=== PATIENT | male | born 1990 | race Caucasian/White ===

== ENCOUNTER 2016-05-11 22:19 | Emergency (ER) | payer BC ==
[2016-05-11] MEDS ORDERED: KETOROLAC 30 MG/ML VIAL IM ONE (23:01)
[2016-05-11] MEDS ORDERED: DIAZEPAM 5 MG TABLET PO ONE (23:01)
--- NOTE | 2016-05-11 23:01 | Emergency Department Record ---
History of Present Illness - General Chief complaint: Toothache Stated complaint: DENTAL PAIN Time Seen by Provider: 05/11/16 22:56 Source: Patient Mode of Arrival: Ambulatory Limitations: No limitations - History of Present Illness Initial comments: 25 yo male presents with dental pain since eating about 45 minutes ago. He had a tooth extraction 05/03. No fevers. The area involved is #3. His prior dental procedure was on the left. MD complaint: Tooth pain Onset/Timin -: Minutes(s) Location: Tooth # Severity scale (1-10): 7 Quality: Aching Consistency: Constant Improves with: None Worsens with: Eating Context- Dental: History of dental caries - Related Data Home Medications Medication Instructions Recorded Confirmed Last Taken Promethazine HCl [Phenergan] 25 mg PO Q8HR PRN 05/11/16 05/11/16 Unknown Previous Rx's Medication Instructions Recorded Albuterol Sulfate [Proair Hfa] 2 puff IH QID PRN #1 inhaler 12/24/15 Allergies Allergy/AdvReac Type Severity Reaction Status Date / Time No Known Drug Allergies Allergy Verified 12/24/15 16:57 Travel Screening - Travel/Exposure Within Last 30 Days Have you traveled within the last 30 days?: No - Travel Symptoms Symptom Screening: None Review of Systems Constitutional: Denies: Chills, Fever, Malaise, Weakness Eyes: Denies: Eye discharge ENT: Reports: Dental pain. Denies: Congestion, Ear pain, Throat pain Respiratory: Denies: Cough Cardiovascular: Denies: Chest pain, Palpitations, Syncope Endocrine: Denies: Fatigue Gastrointestinal: Denies: Abdominal pain, Diarrhea, Nausea, Vomiting Musculoskeletal: Denies: Arthralgia, Back pain, Neck pain Skin: Denies: Change in color, Rash Neurological: Denies: Headache Psychiatric: Denies: Anxiety Hematological/Lymphatic: Denies: Anemia, Blood Clots, Easy bleeding Past Medical History - SOCIAL HISTORY Smoking Status: Never smoker - RESPIRATORY Hx Respiratory Disorders: Yes Hx Asthma: Yes - CARDIOVASCULAR Hx Cardio Disorders: No - NEURO Hx Neuro Disorders: No - GI Hx GI Disorders: No - Hx Genitourinary Disorders: No - ENDOCRINE Hx Endocrine Disorders: No Hx Diabetes: No Hx Thyroid Disease: No - MUSCULOSKELETAL Hx Musculoskeletal Disorders: Yes Comment:: right shoulder injuries - PSYCH Hx Psych Problems: Yes Hx Anxiety: Yes - HEMATOLOGY/ONCOLOGY Hx Hematology/Oncology Disorders: No Family Medical History Any Significant Family History?: Yes Hx Anxiety: Grandparents *Anxiety Comment: Aunt Hx Diabetes: Grandparents Hx Heart Disease: Father Physical Exam - General General Appearance: Alert, Oriented x3, Cooperative, No acute distress Limitations: No limitations - Head Head exam: Normal inspection - Eye Eye exam: Normal appearance. negative: Conjunctival injection, Periorbital swelling - ENT ENT exam: Normal exam, Mucous membranes moist Ear exam: Normal external inspection. negative: External canal tenderness Nasal Exam: Normal inspection. negative: Discharge, Sinus tenderness Mouth exam: Normal external inspection, Tongue normal Teeth exam: Dental caries, Dental tenderness # (3), Fractured tooth # (3). negative: Gingival enlargement Throat exam: Normal inspection. negative: Tonsillar erythema, Tonsillar exudate Image of Mouth/Teeth: 1 - 2mm cavity, no abscess, no definite fracture beyond the exposed cavity, no pus or erythema - Neck Neck exam: Normal inspection, Full ROM. negative: Lymphadenopathy, Tenderness - Respiratory Respiratory exam: Normal lung sounds bilaterally. negative: Respiratory distress - Cardiovascular Cardiovascular Exam: Regular rate, Normal rhythm, Normal heart sounds - GI/Abdominal GI/Abdominal exam: Soft - Rectal Rectal exam: Deferred - exam: Deferred - Neurological Neurological exam: Alert, Normal gait, Oriented X3 - Psychiatric Psychiatric exam: Normal affect, Normal mood - Skin Skin exam: Dry, Intact, Normal color, Warm Course Vital Signs 05/11/16 22:46 Temperature 98.2 F Pulse Rate 76 Respiratory 16 Rate Blood Pressure 138/78 Pulse Ox 93 L - Reevaluation(s) Reevaluation #1: The patient has a cavity that is exposed. I recommended going to his dentist tomorrow. He can go to the pharmacy and find a temporary filling. Non available in the [facility] ED. 05/11/16 23:04 Disposition Disposition: Discharge Clinical Impression: Dental caries Disposition: Home, Self-Care Condition: (1) Good Instructions: Toothache (ED) Additional Instructions: Call your dentist tomorrow Return if you have swelling or fever Continue your motrin and antibiotics Go to the pharmacy and ask for directions for temporary filling material Forms: Patient Portal Access Time of Disposition: 23:06
== END 2016-05-11 23:51 | disposition home health service (06) ==
LOC: ER 22:19
DX: K02.9 Dental caries, unspecified (principal)
CPT/HCPCS: 99283 ×2; 96372; J3490; J1885